=== PATIENT | female | born 1975 | race Caucasian/White ===

== ENCOUNTER 2017-09-05 09:57 | Emergency (ER) | payer OTHER ==
[~2017-09-05] VITALS: Ht 175.3 cm; Wt 102.1 kg
[~2017-09-05 09:57] MED LIST: CELEXA40 MG PO; LORAZEPAM 0.50.5 M1 PO; SYNTHROID75 MCG PO; TRAZODONE 150150 M1 PO
[2017-09-05 10:00] VITALS: BP 110/81
[2017-09-05] MEDS ORDERED: TRAZODONE HCL50 MG PO (10:18)
== END 2017-09-05 10:29 | disposition home or self-care (01) ==
LOC: ER 09:57
DX: G47.00 Insomnia, unspecified (principal); F41.9 Anxiety disorder, unspecified; F32.9 Major depressive disorder, single episode, unspecified; E03.9 Hypothyroidism, unspecified; F43.10 Post-traumatic stress disorder, unspecified; F10.99 Alcohol use, unspecified with unspecified alcohol-induced disorder; Z87.891 Personal history of nicotine dependence